=== PATIENT | female | born 2000 | race Caucasian/White ===

== ENCOUNTER → 2020-04-02 15:18 | Outpatient (BNVA) | payer OTHER, SELFPAY | PROVIDERS: Visit Provider Surgery | DX: Z76.89 Persons encountering health services in other specified circumstances (principal) ==

== ENCOUNTER 2020-05-28 21:47 | Emergency (ER) | payer OTHER, SELFPAY ==
[2020-05-28 21:58] VITALS: BP 130/68; PULSE 98; RESP 16; TEMP 37.4; O2SAT 97; BMI 39.1
--- NOTE | 2020-05-28 22:17 | ED.DENTAL ---
HPI - Dental/Oral General Chief complaint: Dental/Oral Stated complaint: dental pain Time Seen by Provider: 05/28/20 22:02 Source: patient Mode of arrival: ambulatory Limitations: no limitations History of Present Illness HPI Narrative: patient presents to the ED for right lower wisdom tooth impaction. Patient states she is scheduled for tooth extraction in August. Patient states there is no early appointment. Patient states there was slight swelling in the area and she popped it and pus came out. Patient denies any fever, chills, facial swelling. Related Data Home Medications Medication Instructions Recorded Confirmed omeprazole 20 mg capsule,delayed 20 mg PO DAILY 04/02/20 release Previous Rx's Medication Instructions Recorded clindamycin HCl 300 mg PO TID #30 cap 05/28/20 naproxen 500 mg PO BID PRN #20 tab 05/28/20 Allergies Allergy/AdvReac Type Severity Reaction Status Date / Time Penicillins [PENICILLINS] Allergy Severe THROAT Verified 04/02/20 15:59 SWELLING orange [ORANGE] Allergy Unknown THROAT Verified 04/02/20 15:59 SWELLING sertraline [From ZOLOFT] Allergy Unknown HEADACHE Verified 04/02/20 15:59 Review of Systems Constitutional: Constitutional: Reports as per HPI and Reports no additional constitutional complaints Eyes: Eyes: Reports as per HPI and Reports no additional eye complaints ENT: Comments: Dental pain Cardiovascular: Cardiovascular: Reports as per HPI and Reports no additional cardiovascular complaints Respiratory: Respiratory: Reports as per HPI and Reports no additional respiratory complaints Gastrointestinal: Gastrointestinal: Reports as per HPI and Reports no additional gastrointestinal complaints Musculoskeletal: Musculoskeletal: Reports no additional musculoskeletal complaints and Reports as per HPI Neurologic: Reports system reviewed and no additional complaints, except as documented and Reports as per HPI Psychiatric: Psychiatric: Reports no additional psychiatric complaints and Reports as per HPI [facility] Past Medical History Surgical History (Updated 04/02/20 @ 16:25 by Scottie Griffin MD) History of laparoscopic appendectomy (~03/23/20) Family History Family History (Updated 04/02/20 @ 16:04 by MOSES Avila) Mother No problems noted. Father No problems noted. Maternal Grandfather History of lung cancer Social History Social History (Updated 04/02/20 @ 16:04 by MOSES Avila) Alcohol intake: current Alcohol intake frequency: a few times a month Smoking Status: Never smoker Use of substances other than those prescribed or required for medical reasons: Yes Substance Use Type: Marijuana Advance Directives: No Advance Directives Information Provided: Yes Physical Exam Vital Signs: Vital Signs: Last Vital Signs Temp 99.3 F 05/28/20 21:58 Pulse 98 05/28/20 21:58 Resp 16 05/28/20 21:58 BP 130/68 05/28/20 21:58 Pulse Ox 97 05/28/20 21:58 Body Mass Index 39.1 Const: General: cooperative, healthy appearing, comfortable, no acute distress, well developed, alert, awake and Physically active Orientation/consciousness: patient oriented x3 HENMT: Other: Tenderness on palpation of right lower molar wisdom tooth. Presently negative for any fluctuance or pus discharge. Negative for any gum swelling. Head: Yes normal to inspection and Yes No palpable skull fracture present Eyes: General: appearance normal, both eyes and all related structures Neck: Neck: Yes normal visual inspection, Yes full ROM and Yes no lymphadenopathy Chest: Chest palpation & inspection: normal inspection of the chest and normal palpation of entire chest wall Resp: Effort & Inspection: normal respiratory effort and able to speak in complete sentences Cardio: Jugular venous distension: no JVD Heart sounds: S1 normal heart sound present and S2 normal heart sound present GI: Inspection: Yes normal to inspection and No abdominal wall ecchymosis Palpation (GI): not firm, nontender, no guarding and not rigid : General: No CVA tenderness and Yes no CVA tenderness Back/Spine/Pelvis: Back: no CVA tenderness, No CVA tenderness and No back tenderness Skin: General skin exam: no rashes or lesions noted Neuro: General: patient oriented x3, gait normal and CN's II-XI intact bilaterally Cranial nerves: Yes CN's II-XII intact bilaterally Extrem: General: Yes normal to inspection and Yes full ROM Psych: Appearance: grossly normal, well kempt and not disheveled Course Course Course Narrative: patient has wisdom tooth impaction. Patient will be discharged with antibiotics and pain medication. Patient allergic to penicillin so should be discharged on clindamycin. Patient informed to call dentist for earlier appointment. Presently there is no abscess for me to drain. Reevaluation(s) Reevaluation #1: Pain improved with Motrin Time: 22:30 MDM - Dental/Oral MDM Narrative Medical decision making narrative: wisdom tooth impaction Discharge Plan Discharge Clinical Impression: Tooth ache Patient Disposition: Home, Self-Care Instructions: Toothache (ED) Additional Instructions: return to the ED immediately for any facial swelling, coughing up blood, fever, chills, weakness, shortness of breath, neck pain, neck swelling, or any other concerning symptom. please follow-up with your dentist as soon as possible. impacted wisdom tooth Prescriptions: New clindamycin HCl 300 mg capsule 300 mg PO TID Qty: 30 RF: 0 naproxen 500 mg tablet 500 mg PO BID PRN (Reason: pain) Qty: 20 RF: 0 Interventions: ED Discharge Assessment Last Done: 05/28/20 22:40 Discharge Date/Time: 05/28/20 22:40 Print Language: Italian
[2020-05-28] MEDS: Ibuprofen 800 MG TABLET PO (22:20)
== END 2020-05-28 22:40 | disposition home or self-care (01) ==
PROVIDERS: Emergency Provider Emergency Medicine
DX: K08.89 Other specified disorders of teeth and supporting structures (principal); Z79.899 Other long term (current) drug therapy
CPT/HCPCS: 99283

== ENCOUNTER 2020-07-27 13:34 | Emergency (ER) | payer OTHER, SELFPAY ==
[2020-07-27 13:57] VITALS: BP 124/78; PULSE 100; RESP 18; TEMP 36.6; O2SAT 97; BMI 38.2
--- NOTE | 2020-07-27 14:04 | XR_ITS ---
EXAMINATION: RIGHT ANKLE AND RIGHT FOOT. CLINICAL INFORMATION: Status post twisting injury. COMPARISON: None TECHNIQUE: 3 views right foot and 2 views right ankle FINDINGS: RIGHT FOOT: There is no visible acute fracture, dislocation or subluxation. The intertarsal, tarsometatarsal and interphalangeal joints are normal. No bony erosive changes seen. No bony erosive changes. RIGHT ANKLE: There is no visible acute fracture, dislocation or subluxation. The ankle mortise and subtalar joints are normal soft tissues are normal. XR/XR foot RT min 3V IMPRESSION: Multiple right foot and right ankle exam.
--- NOTE | 2020-07-27 14:04 | XR_ITS ---
EXAMINATION: RIGHT ANKLE AND RIGHT FOOT. CLINICAL INFORMATION: Status post twisting injury. COMPARISON: None TECHNIQUE: 3 views right foot and 2 views right ankle FINDINGS: RIGHT FOOT: There is no visible acute fracture, dislocation or subluxation. The intertarsal, tarsometatarsal and interphalangeal joints are normal. No bony erosive changes seen. No bony erosive changes. RIGHT ANKLE: There is no visible acute fracture, dislocation or subluxation. The ankle mortise and subtalar joints are normal soft tissues are normal. XR/XR ankle RT min 3V IMPRESSION: Multiple right foot and right ankle exam.
--- NOTE | 2020-07-27 15:17 | ED_ITS ---
HPI - Extremity Injury (Lower) General Chief Complaint: Extremity Injury, Lower Stated Complaint: fell twisted ankle Time Seen by Provider: 07/27/20 13:59 Source: patient Mode of arrival: ambulatory Limitations: no limitations History of Present Illness HPI Narrative: Right ankle pain status post near fall. States she was going down steps last time she was on her phone did not realize twisted her right ankle having pain in the right ankle since. No other injury. Onset (ago): minute(s) Place: home Severity: mild Relieving factors: immobilization Exacerbating factors: weight bearing and movement Associated symptoms: able to partially bear weight Other symptoms: none Treatments prior to arrival: cold therapy Related Data Home Medications Medication Instructions Recorded Confirmed omeprazole 20 mg capsule,delayed 20 mg PO DAILY 04/02/20 release Previous Rx's Medication Instructions Recorded clindamycin HCl 300 mg PO TID #30 cap 05/28/20 naproxen 500 mg PO BID PRN #20 tab 05/28/20 Allergies Allergy/AdvReac Type Severity Reaction Status Date / Time Penicillins [PENICILLINS] Allergy Severe THROAT Verified 04/02/20 15:59 SWELLING orange [ORANGE] Allergy Unknown THROAT Verified 04/02/20 15:59 SWELLING sertraline [From ZOLOFT] Allergy Unknown HEADACHE Verified 04/02/20 15:59 Review of Systems Review of Systems: Constitutional: No Weight loss, No Fever, No Chills, No Night Sweats, No Fatigue, No Malaise ENT/Mouth: No Hearing loss, No Ear Pain, No Nasal Congestion, No Sinus Pain, No Hoarseness, No sore throat, No Rhinorrhea Eyes: No Eye Pain, No Swelling, No Redness, No Foreign Body, No Discharge, No Vision Changes Cardiovascular: Negative Respiratory: Negative Gastrointestinal: Negative Genitourinary: Negative Musculoskeletal: No joint pain, No Myalgias, No Joint Swelling, as noted HPI Skin: No Skin Lesions, No rash Neuro: No Weakness, No Numbness, No Paresthesias, No Loss of Consciousness, No Dizziness, No Headache Psych: No Social Issues Heme/Lymph: No Bruising, No Bleeding,No Lymphadenopathy Endocrine: No Polyuria, No Polydipsia, No Temperature Intolerance PMFSH Past Medical History Surgical History History of laparoscopic appendectomy (~09/21/20) Family History Family History (Updated 04/02/20 @ 16:04 by MOSES Avila) Mother No problems noted. Father No problems noted. Maternal Grandfather History of lung cancer Social History Social History (Updated 04/02/20 @ 16:04 by MOSES Avila) Alcohol intake: current Alcohol intake frequency: does not drink Smoking Status: Never smoker Smoked in Last 30 Days: No Use of substances other than those prescribed or required for medical reasons: Yes Substance Use Type: Marijuana Substance Use Frequency: Daily Last Used Substance: Days (ago) Advance Directives: No Advance Directives Information Provided: No Physical Exam Vital Signs: Vital Signs: Last Vital Signs Temp 98 F 07/27/20 13:57 Pulse 100 07/27/20 13:57 Resp 18 07/27/20 13:57 BP 124/78 07/27/20 13:57 Pulse Ox 97 07/27/20 13:57 Body Mass Index 38.2 Reviewed Const: General: cooperative and healthy appearing; No acute distress or intoxicated appearing Nutritional Appearance: average body habitus Orientation/consciousness: patient oriented x3 Resp: Effort & Inspection: normal respiratory effort Cardio: Jugular venous distension: no JVD : General: Yes no CVA tenderness Back/Spine/Pelvis: Back: no CVA tenderness Skin: General skin exam: no rashes or lesions noted Neuro: General: patient oriented x3 Extrem: General: Yes normal to inspection Ankle/foot/toe images: 1. Pain/to palpation. No obvious ecchymosis or swelling. Course Course Course Narrative: Right foot/ankle x-ray negative. Neurovascular intact. Haresh wrap/crutches with instruction for gradual weight tolerance as tolerated., return follow-up instructions provided. Stable for discharge. MDM - Extremity Injury (Lower) Differential Diagnosis Differential diagnosis: Likely ankle sprain and strain and ankle fracture; Unlikely acute internal derangement of knee, fracture of femur, fracture of hip, puncture wound of foot and fracture of toe Medical Records Attestation: I reviewed the patient's medical records. Lab Data Attestation: I reviewed the patient's lab results. Imaging Data Right ankle/foot: Radiologist's impression: [address] [id number] ReportSigned Patient: Eleanor RomanMR#: [id number]: 2000Acct:[id number]/Sex: 20 / FADM Date: 07/27/20Loc: EDAttending Dr: Ordering Physician: JAYLEN CANCHOLA Date of Service: 07/27/20 Procedure(s): XR ankle RT min 3V Accession Number(s): [id number] cc: JAYLEN CANCHOLA~ EXAMINATION: RIGHT ANKLE AND RIGHT FOOT. CLINICAL INFORMATION: Status post twisting injury. COMPARISON: None TECHNIQUE: 3 views right foot and 2 views right ankle FINDINGS: RIGHT FOOT: There is no visible acute fracture, dislocation or subluxation. The intertarsal, tarsometatarsal and interphalangeal joints are normal. No bony erosive changes seen. No bony erosive changes. RIGHT ANKLE: There is no visible acute fracture, dislocation or subluxation. The ankle mortise and subtalar joints are normal soft tissues are normal. XR/XR ankle RT min 3V IMPRESSION: Multiple right foot and right ankle exam. Dictated By:DANIAL CALABRESE MDSigned By:<Electronically signed by DANIAL CALABRESE MD in OV>07/27/20 1434 DD/ 1404TD/TT: [employer] Professor: [facility] [place] Discharge Plan Discharge Clinical Impression: Ankle sprain and strain Patient Disposition: Home, Self-Care Instructions: Ankle Sprain (ED) Additional Instructions: Haresh wrap, ice, elevate Use crutches as needed Increase weight-bearing as tolerated over next 48 hours Ibuprofen/Tylenol per label instructions [id number] for pain swelling Return if any concerns or worsening symptoms Thank you Prescriptions: No Action clindamycin HCl 300 mg capsule 300 mg PO TID Qty: 30 RF: 0 naproxen 500 mg tablet 500 mg PO BID PRN (Reason: pain) Qty: 20 RF: 0 Referrals: ED Physician,Generic [Emergency Provider] - 1 week (Primary care doctor as needed) Stand Alone Forms: Work/School Release
== END 2020-07-27 16:00 | disposition home or self-care (01) ==
PROVIDERS: Emergency Provider Internal Medicine
DX: S93.401A Sprain of unspecified ligament of right ankle, initial encounter (principal); S96.911A Strain of unspecified muscle and tendon at ankle and foot level, right foot, initial encounter; W10.8XXA Fall (on) (from) other stairs and steps, initial encounter; Y93.9 Activity, unspecified; Y92.019 Unspecified place in single-family (private) house as the place of occurrence of the external cause; Y99.9 Unspecified external cause status
CPT/HCPCS: 73610; 73630; 99283; 99284

== ENCOUNTER 2021-01-17 00:36 | Emergency (ER) | payer OTHER, SELFPAY ==
[2021-01-17 01:35] VITALS: BP 132/83; PULSE 94; RESP 16; TEMP 36.6; O2SAT 98; BMI 84.4
[2021-01-17 02:20] LABS: COVID-19 Test Negative (Negative); IDNOW Serial# 9DD0AD1C
--- NOTE | 2021-01-17 02:37 | PC.NURSE ---
Pt resting on stretcher in NAD, breathing with ease on RA. pt appears comfortable. Pt updated on negative covid results, continues to await provider eval.
[2021-01-17 02:57] VITALS: BP 113/46; PULSE 84; RESP 18; O2SAT 98
[2021-01-17 03:04] LABS: Glucose Urine UA NEG (NEG); Leukocyte Esterase Urine NEG (NEG); Nitrite Urine NEG (NEG); Specific Gravity - Urine 1.025 (1.005-1.025); Urine Blood NEG (NEG); Urine Ketones NEG (NEG); Urine Protein NEG (NEG-TRACE)
[2021-01-17 03:05] LABS: Appearance Urine CLEAR; Color Urine YELLOW
[2021-01-17 03:07] LABS: UPreg QC Valid YES; Urine Pregnancy POSITIVE (NEGATIVE)
--- NOTE | 2021-01-17 03:40 | ED.GENADULT ---
HPI - General Adult General Chief complaint: General Medical Stated complaint: chest pain Time Seen by Provider: 01/17/21 02:39 Source: patient Mode of arrival: ambulatory History of Present Illness HPI narrative: 20-year-old female, gravid, presents with nasal congestion, sneezing, rhinorrhea, subjective fevers, cough that started approximately 3 days ago. Otherwise patient denies any nausea, vomiting, abdominal pain/cramping, diarrhea, urinary pain/burning/frequency, vaginal bleeding or loss of vaginal fluid. Patient sources that she is receive the COVID-19 vaccine 10 days ago but states that she was also exposed to a friend who tested positive for COVID. Patient denies any body aches or headache. Related Data Home Medications Medication Instructions Recorded Confirmed omeprazole 20 mg capsule,delayed 20 mg PO DAILY 04/02/20 release Previous Rx's Medication Instructions Recorded clindamycin HCl 300 mg PO TID #30 cap 05/28/20 naproxen 500 mg PO BID PRN #20 tab 05/28/20 Allergies Allergy/AdvReac Type Severity Reaction Status Date / Time Penicillins [PENICILLINS] Allergy Severe THROAT Verified 01/17/21 01:34 SWELLING orange [ORANGE] Allergy Unknown THROAT Verified 01/17/21 01:34 SWELLING sertraline [From ZOLOFT] Allergy Unknown HEADACHE Verified 01/17/21 01:34 Review of Systems Review of Systems: Pertinent positives and negatives as stated HPI 10 point review of systems is otherwise negative. [facility] Past Medical History Source: nursing notes reviewed Surgical History History of laparoscopic appendectomy (~03/23/20) Family History Family History Mother No problems noted. Father No problems noted. Maternal Grandfather History of lung cancer Social History Social History Alcohol intake: current Alcohol intake frequency: does not drink Substance Use Type: Marijuana Advance Directives: No Advance Directives Information Provided: No Patient : Yes Physical Exam Vital Signs: Vital Signs: Last Vital Signs Temp 97.9 F 01/17/21 01:35 Pulse 84 01/17/21 02:57 Resp 18 01/17/21 02:57 BP 113/46 L 01/17/21 02:57 Pulse Ox 98 01/17/21 02:57 Body Mass Index 84.4 VITAL SIGNS: Reviewed. GENERAL: Well developed, well nourished, in no acute distress. HEAD: Normocephalic/atraumatic EYES: PERRLA, EOMI EARS: Ext canals without abnormality, TMs non-bulging and non-erythematous NOSE: Rhinorrhea, nasal congestion OROPHARYNX: no oral lesions noted, posterior pharynx clear, cobblestoning noted, and non-erythematous without noted tonsillar enlargement/erythema/exudates NECK: Supple, no adenopathy LUNGS: Normal breath sounds. No adventitious sounds or accessory muscle use. SpO2<98> CARDIOVASCULAR: Regular rate and rhythm without noted murmurs ABDOMEN: Gravid, Soft, non-tender, non-distended with bowel sounds. SKIN: Inspection of the skin reveals no rashes NEUROLOGIC: Alert and oriented x 4. Course Course Course Narrative: 20-year-old female who is and has concerns for possible COVID-19 exposure, but on history and presentation appears to have mild allergic rhinitis. On review of investigations there are no acute findings. Patient was informed of these results and will be discharged home in stable condition with instructions to repeat the COVID-19 test and 3-4 days to confirm negativity. Medical Decision Making Lab Data Labs: Lab Results 01/17/21 01/17/21 01/17/21 Range/Units 01:51 02:50 02:50 Urine Color YELLOW Urine Appearance CLEAR Urine pH 6.0 (5.0-8.0) Ur Specific [place] 1.025 (1.005-1.025) Urine Protein NEG (NEG-TRACE) MG/DL Urine Glucose (UA) NEG (NEG) MG/DL Urine Ketones NEG (NEG) MG/DL Urine Blood NEG (NEG) Urine Nitrite NEG (NEG) Ur Leukocyte Esterase NEG (NEG) Urine Test POSITIVE H (NEGATIVE) COVID-19 (MARY) Negative (Negative) COVID-19 Clin Com See Note Discharge Plan Discharge Clinical Impression: Allergic rhinitis Patient Disposition: Home, Self-Care Instructions: Allergic Rhinitis (ED), Loratadine (By mouth), Fluticasone (Into the nose) Additional Instructions: Please follow-up with your whipped topping finisher in the next 2-3 days for re-evaluation and further outpatient management. Recommend daily Claritin and [id number] Flonase Return to the ER for acute worsening of her symptoms. Prescriptions: No Action clindamycin HCl 300 mg capsule 300 mg PO TID Qty: 30 RF: 0 naproxen 500 mg tablet 500 mg PO BID PRN (Reason: pain) Qty: 20 RF: 0 Referrals: Physician,None [Primary Care Provider] - 2 days
== END 2021-01-17 04:05 | disposition home or self-care (01) ==
PROVIDERS: Emergency Provider Student in an Organized Health Care Education/Training Program
DX: J30.9 Allergic rhinitis, unspecified (principal); R07.9 Chest pain, unspecified; F12.90 Cannabis use, unspecified, uncomplicated; Z20.822 Contact with and (suspected) exposure to COVID-19; Z79.899 Other long term (current) drug therapy
CPT/HCPCS: 36415; 81003; 81025; 87635; 99284

== ENCOUNTER 2021-09-09 16:08 | Emergency (ER) | payer OTHER, SELFPAY ==
--- NOTE | ~2021-09-09 | CT_ITS ---
EXAMINATION: CT ABDOMEN AND PELVIS WITH CONTRAST CLINICAL INFORMATION: Left lower quadrant abdominal pain. White blood cell count. Diarrhea. COMPARISON: CT scan of the abdomen and pelvis 03/22/2020. TECHNIQUE: Multidetector volumetric images were obtained from the superior aspect of the liver through the pubic symphysis following administration 75 mL of Omnipaque 350 intravenous contrast. Sagittal and coronal reformatted images were obtained on the technologist's workstation. Oral contrast: No This CT examination was performed using dose optimization techniques as appropriate, variously including the following: *Automated exposure control *Adjustment of mA and/or kV according to patient size (this includes techniques or standardized protocols for targeted exams where dose is matched to indication/reason for exam; i.e. extremities or head) *Use of iterative reconstruction technique DLP: 814 mGy-cm FINDINGS: LUNG BASES: The visualized lung bases are unremarkable. LIVER, GALLBLADDER, AND BILIARY TREE: The liver is normal in size, shape, and attenuation. No focal hepatic lesion or biliary ductal dilatation is present. The gallbladder is unremarkable with no evidence of radiopaque gallstones, gallbladder wall thickening, or obvious pericholecystic inflammatory changes. PANCREAS: Unremarkable. SPLEEN: Unremarkable. ADRENAL GLANDS: Unremarkable. KIDNEYS AND URETERS: The kidneys are normal in size, shape, and attenuation. No hydronephrosis, hydroureter, or calculi seen. No perinephric stranding. BLADDER: Unremarkable. GASTROINTESTINAL TRACT: The small and large bowel are unremarkable. The appendix is surgically absent. ABDOMINAL WALL: No significant hernia is appreciated. LYMPH NODES: Normal. VASCULAR: There is reflux of intravenous contrast through dilated bilateral ovarian veins, greater on the left. The aorta and inferior vena cava are otherwise unremarkable. PELVIC VISCERA: Unremarkable. OSSEOUS STRUCTURES: No acute osseous finding. Specifically no worrisome lytic or blastic osseous lesion. CT/CT abdomen pelvis w con IMPRESSION: There is reflux of intravenous contrast through the dilated bilateral ovarian veins, greater on the left. These findings indicate the possibility of underlying pelvic venous congestion syndrome. Otherwise unremarkable CT scan of the abdomen and pelvis.
[2021-09-09 16:28] VITALS: BP 143/87; PULSE 100; RESP 16; TEMP 36.8; O2SAT 99; BMI 36.2
[2021-09-09 19:41] LABS: MANUAL DIFF FLAG NO
[2021-09-09 19:42] LABS: Basophils Absolute Auto 0.1 X10*3/uL (0.0-0.2); Basophils Percent Auto 0.6 % (0-2); Eosinophils Absolute Auto 0.1 X10*3/uL (0.0-0.4); Eosinophils Percent Auto 0.9 % (0-4); Hematocrit 41.2 % (37.0-47.0); Hemoglobin 12.9 g/dl (12.0-16.0); Imm Gran Pct Auto 0.7 % (0.0-0.4); Lymphocytes Absolute Auto 4.2 X10*3/uL (1.2-4.9); Lymphocytes Percent Auto 27.7 % (20-40); Mean Corpuscular HGB Conc 31.3 g/dl (31.0-35.0); Mean Corpuscular Hemoglobin 24.1 pg (27.0-33.0); Mean Corpuscular Volume 76.9 fL (80.0-98.0); Mean Platelet Volume 10.9 fL (9.4-12.3); Monocytes Absolute Auto 0.7 X10*3/uL (0.1-1.2); Monocytes Percent Auto 4.3 % (2-11); Neutrophils Percent Auto 65.8 % (45-73); Platelet Count 356 X10*3/uL (160-400); Red Blood Count 5.36 X10*6/uL (4.20-5.50); Red Cell Distribution Width 14.1 % (11.0-16.0); White Blood Count 15.2 X10*3/uL (4.8-10.8)
[2021-09-09 19:55] LABS: Anion Gap 14 (12-20); Blood Urea Nitrogen 13 mg/dL (9-16); Calcium 10.3 mg/dL (8.4-10.2); Carbon Dioxide 24 mmol/L (22-29); Chloride 104 mmol/L (96-108); Creatinine Clr Calc Pharmacy 144.7; Estimated Glomerular Filt Rate > 60; Glucose Random 83 mg/dL (60-115); Potassium 4.5 mmol/L (3.3-5.1); Sodium 137 mmol/L (135-145)
[2021-09-09 20:53] LABS: Appearance Urine CLEAR; Color Urine STRAW; Glucose Urine UA NEG (NEG); Leukocyte Esterase Urine NEG (NEG); Nitrite Urine NEG (NEG); Specific Gravity - Urine 1.025 (1.005-1.025); Urine Blood NEG (NEG); Urine Ketones NEG (NEG); Urine Protein NEG (NEG-TRACE)
[2021-09-09 20:54] LABS: UPreg QC Valid YES; Urine Pregnancy NEGATIVE (NEGATIVE)
--- NOTE | 2021-09-09 21:05 | ED_ITS ---
HPI - Abdominal Pain General Chief Complaint: Abdominal Pain Stated Complaint: abd pain Time Seen by Provider: 09/09/21 21:04 Source: patient Mode of arrival: ambulatory Limitations: no limitations History of Present Illness MD elicited complaint: abdominal pain (n/v/d) Onset (ago): week(s) (1) Pain Consistency: constant Location: periumbilical, LUQ and LLQ Severity: moderate Quality: cramping Radiation: none Migration to: no migration Exacerbating factors: nothing Relieving factors: nothing Associated symptoms: nausea, vomiting and diarrhea (1 episode per day) Related Data Home Medications Medication Instructions Recorded Confirmed omeprazole 20 mg capsule,delayed 20 mg PO DAILY 04/02/20 release Previous Rx's Medication Instructions Recorded clindamycin HCl 300 mg capsule 300 mg PO TID #30 cap 05/28/20 naproxen 500 mg tablet 500 mg PO BID PRN #20 tab 05/28/20 cyclobenzaprine 10 mg tablet 10 mg PO TID PRN #14 tab 09/09/21 ibuprofen 600 mg tablet 600 mg PO Q6H PRN #30 tab 09/09/21 ondansetron 4 mg disintegrating 4 mg PO Q8H PRN #20 tab 09/09/21 tablet Allergies Allergy/AdvReac Type Severity Reaction Status Date / Time Penicillins [PENICILLINS] Allergy Severe THROAT Verified 09/09/21 16:28 SWELLING orange [ORANGE] Allergy Unknown THROAT Verified 01/17/21 01:34 SWELLING sertraline [From ZOLOFT] Allergy Unknown HEADACHE Verified 01/17/21 01:34 Review of Systems Review of Systems Constitutional : No Weight loss, No Fever, No Chills ENT/Mouth : No sore throat, No Rhinorrhea Eyes: No Swelling, No Redness Cardiovascular : No Chest Pain, No SOB, NoEdema Respiratory : No Cough, No Sputum, No Wheezing Gastrointestinal : Positive Nausea, no Vomiting, positive Diarrhea, positive abdominal Pain, No Hematochezia, No Melena Genitourinary : No Dysuria, No Urinary Frequency, No Hematuria, No Urgency Musculoskeletal : No joint pain, No Myalgias, No Joint Swelling Skin : No Skin Lesions, No rash Neuro : No Weakness, No Numbness, No Dizziness, No Headache Psych : No Anxiety/Panic, No Depression Heme/Lymph: No Bruising, No Lymphadenopathy Endocrine : No Polyuria, No Polydipsia All other systems reviewed and are negative. [facility] Past Medical History Attestation statement: The following information was validated with the patient. Surgical History History of laparoscopic appendectomy (~03/23/20) Family History Family History Mother No problems noted. Father No problems noted. Maternal Grandfather History of lung cancer Social History Social History (Updated 09/09/21 @ 21:19 by Aaliyah Helms DO) Alcohol intake: current Alcohol intake frequency: does not drink Patient Tobacco Use Status: Never used Tobacco Substance Use Type: Marijuana Advance Directives: No Physical Exam ED Vital Signs: Vital Signs - 24 hr 09/09/21 16:28 Temperature 98.3 F Pulse Rate 100 Respiratory Rate 16 Blood Pressure 143/87 H Pulse Oximetry 99 BMI result Body Mass Index 36.2 Appearance: Alert. Oriented X3. No acute distress. Eyes: Pupils equal, round and reactive to light. ENT: Pharynx normal. Neck: Normal inspection. Neck supple. CVS: Normal heart rate and rhythm. Pulses normal. Respiratory: No respiratory distress. Breath sounds normal. Abdomen: Soft and mild LLQ ttp no rebound or guarding Skin: Skin warm and dry. Normal skin color. Normal skin turgor. Extremities: No lower extremity edema. Neuro: Oriented X 3. No motor deficit. No sensory deficit. Course Course Course Narrative: hx of leukocytosis in the past. CT scan no colitis, discussed pelvic congestion syndrome she notes that she has had issues since giving 5 months ago with cramps and irregular periods will follow up with her OBGYN no v/d while here MDM - Abdominal Pain MDM Narrative Medical decision making narrative: 21 yo female with no sig PMH no recent abx use, no recent travel, no prior known IBD in patient or family comes in with c/o L sided abdominal pain and diarrhea worsening over 1 week at this time will obtain basic labs, hydrate, IV toradol for pain, CT scan for colitis. Dispo per results and findings. Differential Diagnosis Differential diagnosis: Likely abdominal pain, calculus of kidney, diverticulitis and gastroenteritis; Unlikely acute appendicitis, bowel perforation or mesenteric ischemia Lab Data Result diagrams: 09/09/21 19:35 09/09/21 19:35 Labs: Lab Results 09/09/21 09/09/21 09/09/21 Range/Units 19:35 19:35 20:45 WBC 15.2 H (4.8-10.8) X10*3/uL RBC 5.36 (4.20-5.50) X10*6/uL Hgb 12.9 (12.0-16.0) g/dl Hct 41.2 (37.0-47.0) % MCV 76.9 L (80.0-98.0) fL MCH 24.1 L (27.0-33.0) pg MCHC 31.3 (31.0-35.0) g/dl RDW 14.1 (11.0-16.0) % Plt Count 356 (160-400) X10*3/uL MPV 10.9 (9.4-12.3) fL Immature Gran % (Auto) 0.7 H (0.0-0.4) % Neut % (Auto) 65.8 (45-73) % Lymph % (Auto) 27.7 (20-40) % Imperial % (Auto) 4.3 (2-11) % Eos % (Auto) 0.9 (0-4) % Baso % (Auto) 0.6 (0-2) % Lymph # (Auto) 4.2 (1.2-4.9) X10*3/uL Imperial # (Auto) 0.7 (0.1-1.2) X10*3/uL Eos # (Auto) 0.1 (0.0-0.4) X10*3/uL Baso # (Auto) 0.1 (0.0-0.2) X10*3/uL Abs Immat Gran (auto) 0.10 H (0.00-0.03) X10*3/uL Absolute Neuts (auto) 10.0 H (2.0-8.3) x10*3/uL Absolute Nucleated RBC 0.000 (0.0-0.012) X10*3/uL Nucleated RBC % (auto) 0.0 (0.0-0.2) /100WBC Sodium 137 (135-145) mmol/L Potassium 4.5 (3.3-5.1) mmol/L Chloride 104 (96-108) mmol/L Carbon Dioxide 24 (22-29) mmol/L Anion Gap 14 (12-20) BUN 13 (9-16) mg/dL Creatinine 0.71 (0.5-1.4) mg/dL Estim Creat Clear Calc 144.7 Estimated GFR > 60 Random Glucose 83 (60-115) mg/dL Calcium 10.3 H (8.4-10.2) mg/dL Total Bilirubin 0.7 (0.0-1.0) mg/dL Direct Bilirubin 0.3 (0.0-0.5) mg/dL AST 19 (5-31) U/L ALT 34 H (0-31) U/L Alkaline Phosphatase 111 (39-117) U/L Total Protein 7.8 (6.5-8.0) g/dL Albumin 4.6 (3.5-5.0) g/dL Lipase 16 (8-78) U/L Urine Color Urine Appearance Urine pH (5.0-8.0) Ur Specific Burden (1.005-1.025) Urine Protein (NEG-TRACE) MG/DL Urine Glucose (UA) (NEG) MG/DL Urine Ketones (NEG) MG/DL Urine Blood (NEG) Urine Nitrite (NEG) Ur Leukocyte Esterase (NEG) Urine Test NEGATIVE (NEGATIVE) 09/09/21 Range/Units 20:46 WBC (4.8-10.8) X10*3/uL RBC (4.20-5.50) X10*6/uL Hgb (12.0-16.0) g/dl Hct (37.0-47.0) % MCV (80.0-98.0) fL MCH (27.0-33.0) pg MCHC (31.0-35.0) g/dl RDW (11.0-16.0) % Plt Count (160-400) X10*3/uL MPV (9.4-12.3) fL Immature Gran % (Auto) (0.0-0.4) % Neut % (Auto) (45-73) % Lymph % (Auto) (20-40) % Imperial % (Auto) (2-11) % Eos % (Auto) (0-4) % Baso % (Auto) (0-2) % Lymph # (Auto) (1.2-4.9) X10*3/uL Imperial # (Auto) (0.1-1.2) X10*3/uL Eos # (Auto) (0.0-0.4) X10*3/uL Baso # (Auto) (0.0-0.2) X10*3/uL Abs Immat Gran (auto) (0.00-0.03) X10*3/uL Absolute Neuts (auto) (2.0-8.3) x10*3/uL Absolute Nucleated RBC (0.0-0.012) X10*3/uL Nucleated RBC % (auto) (0.0-0.2) /100WBC Sodium (135-145) mmol/L Potassium (3.3-5.1) mmol/L Chloride (96-108) mmol/L Carbon Dioxide (22-29) mmol/L Anion Gap (12-20) BUN (9-16) mg/dL Creatinine (0.5-1.4) mg/dL Estim Creat Clear Calc Estimated GFR Random Glucose (60-115) mg/dL Calcium (8.4-10.2) mg/dL Total Bilirubin (0.0-1.0) mg/dL Direct Bilirubin (0.0-0.5) mg/dL AST (5-31) U/L ALT (0-31) U/L Alkaline Phosphatase (39-117) U/L Total Protein (6.5-8.0) g/dL Albumin (3.5-5.0) g/dL Lipase (8-78) U/L Urine Color STRAW Urine Appearance CLEAR Urine pH 6.0 (5.0-8.0) Ur Specific Burden 1.025 (1.005-1.025) Urine Protein NEG (NEG-TRACE) MG/DL Urine Glucose (UA) NEG (NEG) MG/DL Urine Ketones NEG (NEG) MG/DL Urine Blood NEG (NEG) Urine Nitrite NEG (NEG) Ur Leukocyte Esterase NEG (NEG) Urine Test (NEGATIVE) Discharge Plan 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 These findings indicate the possibility of underlying pelvic venous congestion syndrome. Otherwise unremarkable CT scan of the abdomen and pelvis. Prescriptions: New cyclobenzaprine 10 mg tablet 10 mg PO TID PRN (Reason: muscle spasm) Qty: 14 0RF ibuprofen 600 mg tablet 600 mg PO Q6H PRN (Reason: pain) Qty: 30 0RF ondansetron 4 mg tablet,disintegrating 4 mg PO Q8H PRN (Reason: nausea and vomiting) Qty: 20 0RF No Action clindamycin HCl 300 mg capsule 300 mg PO TID Qty: 30 0RF naproxen 500 mg tablet 500 mg PO BID PRN (Reason: pain) Qty: 20 0RF Stand Alone Forms: Work/School Release
[2021-09-09] MEDS: Ketorolac Tromethamine 30 MG/ML VIAL IVPUSH (21:20)
[2021-09-09] MEDS: ondansetron HCL 4 MG/2 ML VIAL IVPUSH (21:21)
[2021-09-09] MEDS: 0.9 % Sodium Chloride 1,000 ML 999 ML IV (21:22)
[2021-09-09] MEDS: iohexoL 350 MG/ML 100 ML INFUS..BTL IV (21:41)
[2021-09-09 21:52] LABS: Alanine Aminotransferase 34 U/L (0-31); Albumin Level 4.6 g/dL (3.5-5.0); Alkaline Phosphatase 111 U/L (39-117); Aspartate Amino Transferase 19 U/L (5-31); Bilirubin Direct 0.3 mg/dL (0.0-0.5); Bilirubin Total 0.7 mg/dL (0.0-1.0); Lipase 16 U/L (8-78); Total Protein 7.8 g/dL (6.5-8.0)
[2021-09-09 23:31] VITALS: BP 102/53; PULSE 89; RESP 16; O2SAT 98
== END 2021-09-09 23:33 | disposition home or self-care (01) ==
PROVIDERS: Emergency Provider Emergency Medicine
DX: N94.89 Other specified conditions associated with female genital organs and menstrual cycle (principal); R10.30 Lower abdominal pain, unspecified; D72.829 Elevated white blood cell count, unspecified
CPT/HCPCS: 36415; 74177; 80048; 80076; 81003; 81025; 83690; 85025; 96361; 96374; 96375; 99283; 99284; J1885; J2405; Q9967

== ENCOUNTER 2024-05-10 17:45 | Emergency (ER) | payer OTHER, SELFPAY ==
--- NOTE | 2024-05-10 17:59 | ED_ITS ---
HPI - General Adult General Chief complaint: Wound/Laceration Stated complaint: finger lac Time Seen by Provider: 05/10/24 21:43 History of Present Illness ED Provider: Melissa NÚÑEZ narrative: The patient is a 23-year-old female who was slicing a bagel. She held the knife in her right hand and accidentally cut the skin of the left index finger. She had a small laceration and came to the emergency room for evaluation. She is up-to-date on tetanus. Related Data Home Medications ?Medication ?Instructions ?Recorded ?Confirmed omeprazole 20 mg capsule,delayed 20 mg PO DAILY 04/02/20 release Previous Rx's ?Medication ?Instructions ?Recorded clindamycin HCl 300 mg capsule 300 mg PO TID #30 caps 05/28/20 naproxen 500 mg tablet 500 mg PO BID PRN pain #20 tabs 05/28/20 cyclobenzaprine 10 mg tablet 10 mg PO TID PRN muscle spasm #14 09/09/21 tabs ibuprofen 600 mg tablet 600 mg PO Q6H PRN pain #30 tabs 09/09/21 ondansetron 4 mg disintegrating 4 mg PO Q8H PRN nausea and 09/09/21 tablet vomiting #20 tabs Allergies Allergy/AdvReac Type Severity Reaction Status Date / Time Penicillins [PENICILLINS] Allergy Severe THROAT Verified 05/10/24 18:00 SWELLING orange [ORANGE] Allergy Unknown THROAT Verified 05/10/24 18:00 SWELLING sertraline [From ZOLOFT] Allergy Unknown HEADACHE Verified 05/10/24 18:00 Review of Systems Review of Systems: Yes all other systems are reviewed and are negative PMF Past Medical History Surgical History History of laparoscopic appendectomy (~03/23/20) Family History Family History Mother No problems noted. Father No problems noted. Maternal Grandfather History of lung cancer Social History Social History (Updated 09/09/21 @ 21:19 by Oneyda Helms DO) Alcohol intake: current Alcohol intake frequency: holidays/special occasions only Patient Tobacco Use Status: Never used Tobacco Smoked in Last 30 Days: No Use of substances other than those prescribed or required for medical reasons: No Substance Use Type: Marijuana Advance Directives: No Advance Directives Information Provided: No Do you have a plan to hurt others: No Plan Physical Exam ED Vital Signs: Vital Signs - 24 hr 05/10/24 18:00 05/10/24 21:14 05/10/24 22:11 Temperature 98.3 F 99.0 F 98.1 F Pulse Rate 93 91 88 Respiratory Rate 20 16 16 Blood Pressure 130/83 118/85 138/72 Pulse Oximetry 97 98 99 Oxygen Delivery Method Room Air Room Air Room Air 05/10/24 22:23 Temperature 98.1 F Pulse Rate 88 Respiratory Rate 16 Blood Pressure 138/72 Pulse Oximetry 99 Oxygen Delivery Method Room Air BMI result Body Mass Index 32.6 Const Other: The patient is awake and alert. Does not appear in acute distress. HENMT Head: Yes normal to inspection Face and sinus: Yes normal facial exam Mouth: Normal oral and palatal mucosa present Eyes General: appearance normal, both eyes and all related structures Resp Effort & Inspection: normal respiratory effort Skin Other: The patient has a 1 cm laceration to the skin of the left index finger. This laceration is just distal to the PIP joint. It is mostly on the dorsal aspect of the finger. Is a full-thickness laceration but just barely. Neuro Other: Intact neurological function of the left index finger. She has normal motor and sensory function. She is otherwise grossly neurologically intact. Extrem Other: There is a laceration that is not very deep on the dorsal aspect of the left index finger. She has normal function of the finger. Course Course Course Narrative: This is an RME done by DONNA Heaton: Additional HPI, ROS, PE not included below will be deferred to primary provider. 23-year-old female presents with laceration to left 2nd finger, patient was cutting a bagel, knife slipped, she accidentally cut her finger. Wanted to come in to seek treatment. No numbness or tingling. Not on blood thinners. Patient to date on tetanus shot. Procedures Laceration Laceration 1: Site: hand (Left index finger) Side (If applicable): left Size (cm): 1 Description: linear Depth: simple, single layer Pre-repair: wound explored, irrigated extensively and deep structures intact Skin layer closed with: other (Skin adhesive, several layers) Medical Decision Making Medical Decision Making MDM Narrative: The patient is an ordinarily healthy 23-year-old female who was up-to-date on tetanus who has a laceration to the left index finger which is not associated with any neurovascular injury or tendon injury. Wound was irrigated copiously by holding the finger under running tap water with the wound open. The wound is just barely a full-thickness injury and therefore I felt closure with skin adhesive would be appropriate. The wound was closed with several layers of skin adhesive. Wound care instructions were reviewed with the patient. Discharge Plan Discharge Clinical Impression: Laceration of left index finger Patient Disposition: Home, Self-Care Instructions: Finger Laceration (ED), Skin Adhesive Care (ED) Additional Instructions: The laceration on your left index finger has been closed with glue. In cases like this the glue will fall off after several days. During that time the wound should have closed sufficiently. Please do your best to try to avoid putting any stress on the glue. Although the glue is durable at can be ripped off. If you feel that there is any sign of infection in the wound please return to the emergency room for additional evaluation. Prescriptions: No Action clindamycin HCl 300 mg capsule 300 mg PO TID Qty: 30 0RF naproxen 500 mg tablet 500 mg PO BID PRN (Reason: pain) Qty: 20 0RF cyclobenzaprine 10 mg tablet 10 mg PO TID PRN (Reason: muscle spasm) Qty: 14 0RF ibuprofen 600 mg tablet 600 mg PO Q6H PRN (Reason: pain) Qty: 30 0RF ondansetron 4 mg tablet,disintegrating 4 mg PO Q8H PRN (Reason: nausea and vomiting) Qty: 20 0RF Interventions: ED Discharge Assessment Last Done: 05/10/24 22:23 Discharge Date/Time: 05/10/24 22:24 Print Language: Barbadian
[2024-05-10 18:00] VITALS: BP 130/83; PULSE 93; RESP 20; TEMP 36.8; O2SAT 97; BMI 32.6
[2024-05-10 21:14] VITALS: BP 118/85; PULSE 91; RESP 16; TEMP 37.2; O2SAT 98
[2024-05-10 22:11] VITALS: BP 138/72; PULSE 88; RESP 16; TEMP 36.7; O2SAT 99
--- NOTE | 2024-05-10 22:22 | PC.NURSE ---
laceration cleaned, provider into assess and medicate, reviewed discharge instructions with pt. pt verbalized understanding, no sign of distress, positive cms and pulse.
[2024-05-10 22:23] VITALS: BP 138/72; PULSE 88; RESP 16; TEMP 36.7; O2SAT 99
== END 2024-05-10 22:24 | disposition home or self-care (01) ==
PROVIDERS: Emergency Provider Emergency Medicine
DX: S61.211A Laceration without foreign body of left index finger without damage to nail, initial encounter (principal); W26.0XXA Contact with knife, initial encounter; Y93.G9 Activity, other involving cooking and grilling; Y92.030 Kitchen in apartment as the place of occurrence of the external cause; Y99.9 Unspecified external cause status
CPT/HCPCS: 12001; 99284